=== PATIENT | female | born 1960 ===

== ENCOUNTER 2025-03-14 10:15 | Outpatient (RCR) | payer MEDICARE, SELFPAY ==
--- NOTE | 2024-12-27 13:35 | OTOPEVAL1 ---
Assessment and note entered by Yolanda Campos OT Evaluation Information Assessment Status Evaluation Diagnosis amputation leg Other ICD-10 Condition Codes ( Z89.512; Z47.81 OT) Onset 10/2024 Subjective Information Pt. 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 Pt. discharged to rehab [facility] and discharged home the 11/14. Pt. reports being able to complete ADLs and functional transfers from wheelchair with plans to see Weathe[employer] Operations Manager on Friday12/31/24 to be fitted for prosthetic. Pt. reports he has been able to modify IADLs including sweeping and mopping, and doesn't report any difficulty with management of day to day activities. Reported Pain Level Pain Score 0: Self Report Additional Pain Score Comments Pt. reports soreness, but no pain in L LE Assessment OT Clinical Summary Pt. is 64 year old M s/p L BKA 10/2024. Pt. completed acute inpatient rehab and returned home 11/14/24. Pt. reports he is mobilizing at home with wheelchair and completing stand pivot transfers for functional activities including toileting and bathing, and continues to participate in IADLs including cleaning his home. Pt. plans to be fit with L LE prosthetic a the end of this week. Pt. demonstrates adequate knowledge and capacity for functional transfers from wheelchair, ADLs requiring static and dynamic sitting balance, and strength necessary to complete necessary and desired functional activities. Pt. reports history of being physically active, which he reports he will continue, encouraged to continue to participate in upper body and core strengthening activities to limit risks of secondary injury or functional decline. No additional skilled OT services recommended at this time. Plan of Care OT Services Indicated No These treatments will address the objective and functional deficits as defined above. The patient will be advanced safely and appropriately in order for the patient to progress towards his/her prior level of function. Additional exercises will be introduced and as well as a comprehensive home exercise program upon discharge, if needed, ?to ensure carryover of functional gains achieved in the clinic. This treatment plan has been reviewed and agreement upon by the patient.
--- NOTE | 2024-12-27 14:20 | OPREHPOC ---
Outpatient Therapy Plan of Care This is a Multidisciplinary Plan of Care that may contain components documented by all disciplines (PT, OT, and ST.) PT Problem 1 PT Problem #1 Knowledge Deficit PT Goal 1 Goal / Goal Update Patient to demonstrate independence with HEP for improved self-reliance of symptom management. Target Visit 6 PT Problem 2 PT Problem #2 Pain PT Goal 1 Goal / Goal Update Patient to decrease subjective reports of phantom limb pain to <7/10. Target Visit 12 PT Problem 3 PT Problem #3 Impaired Strength PT Goal 1 Goal / Goal Update 1. Patient to demonstrate L hip strength >=5/5 for improved stability required for gait with prosthetic. 2. The patient will complete WBOS balance of >15 sec for decreased fall risk. Target Visit 12 PT Problem 4 PT Problem #4 Impaired Functional Mobility PT Goal 1 Goal / Goal Update 1. Patient to improve confidence and understanding of gait mechanics with L LE prosthetic and 2WW to improve community navigation. 2. Pt will perform gait with L LE prosthetic and 2WW with SBA for improved safety with mobility. Target Visit 12
--- NOTE | 2024-12-27 14:21 | PTOPEVAL1 ---
Assessment and note entered by Bekah David, PT Evaluation Information Assessment Status Evaluation Diagnosis Z89.512, Z47.81 ICD-10 Condition Codes (PT) Difficulty Walking R26.2,Weakness R53.1 Subjective Information Pt had a diabetic ulcer on the L foot requiring amputation in April 2024. Pt presents this date with [facility] in manual wheelchair. He reports he can use a walker but has not recently. He is mobile and I inside his home in the wheelchair including dressing, bathing, cooking, and laundry. He lives with his son who does the driving. He has an upcoming appt with [employer] on 12/31 to possibly get fitted for a prosthetic. He is currently in an ampushield. He needs to get his legs stronger so he can start walking as soon as he gets his prosthesis. Reported Pain Level Pain Score 0: Self Report Pain Score 0: Self Report Additional Pain Score Comments Pt. reports soreness, but no pain in L LE Assessment PT Clinical Summary Pt is a 64 year old male who presents to physical therapy s/p L REFUGIO in April 2024. Pt demonstrates hip weakness, phantom limb pain, decreased mobility, gait deficit, and decreased flexibility that require skilled intervention to prepare him for gait with new prosthetic. Pt will benefit from skilled physical therapy to address the above listed deficits and optimize CLOF once new prosthetic is obtained. HEP instructed and written handout provided, EX tolerated well with no adverse effects to note post-session. Pt was educated on importance of adherence to HEP. Pt was also educated on anatomy, prognosis, home modalities, and PT POC. Plan of Care Interventions Check Out for Orthotic/Prosthetic,Electrical Stimulation,Gait Training,Hot Pack/Cold Pack, Intermittent Compression Pump,Manual Therapy,Neuro Re-education,Patient/Caregiver Education, Prosthetic Training,Therapeutic Activities, Therapeutic Exercise,Self-Care/Home Management, Wheelchair Training PT Services Indicated Yes Treatment Frequency and 1-2x/wk for 12 sessions Duration These treatments will address the objective and functional deficits as defined above. The patient will be advanced safely and appropriately in order for the patient to progress towards his/her prior level of function. Additional exercises will be introduced and as well as a comprehensive home exercise program upon discharge, if needed, ?to ensure carryover of functional gains achieved in the clinic. This treatment plan has been reviewed and agreement upon by the patient.
--- NOTE | 2025-02-02 10:02 | OPREHPOC ---
Outpatient Therapy Plan of Care This is a Multidisciplinary Plan of Care that may contain components documented by all disciplines (PT, OT, and ST.) PT Problem 1 PT Problem #1 Knowledge Deficit PT Goal 1 Goal / Goal Update Patient to demonstrate independence with HEP for improved self-reliance of symptom management. --------- 02-02-25 progress goal met continue towards goal to progress education add: prosthetic education--donning/doffing, skin care Target Visit 22 PT Problem 2 PT Problem #2 Pain PT Goal 1 Goal / Goal Update Patient to decrease subjective reports of phantom limb pain to <7/10. --------- 02-02-25 progress goal not met, increase to 8/10 at times continue Target Visit 22 PT Problem 3 PT Problem #3 Impaired Strength PT Goal 1 Goal / Goal Update 1. Patient to demonstrate L hip strength >=5/5 for improved stability required for gait with prosthetic. 2. The patient will complete WBOS balance of >15 sec for decreased fall risk. --------- 02-02-25 progress goal 2 met continue towards goal 1 Target Visit 22 PT Problem 4 PT Problem #4 Impaired Functional Mobility PT Goal 1 Goal / Goal Update 1. Patient to improve confidence and understanding of gait mechanics with L LE prosthetic and 2WW to improve community navigation. 2. Pt will perform gait with L LE prosthetic and 2WW with SBA for improved safety with mobility. --------- 02-02-25 progress goals not met--pt does not have his prosthesis yet Target Visit 12 Progress Not Met PT Goal 2 Goal / Goal Update --------- 02-02-25 progress NEW GOALS: 1* pt ambulate on level surface, independently with wheeled walker and prosthesis 300' 2* pt up/down 4 steps with two hand railings, independently 3* pt ambulate with cane and minimal assist x1 50' 4* sit/stand with use of 1 UE and standing up without device for support 5* pt transfer sitting/floor with CGA x1 and use of UE on mat Target Visit 22
--- NOTE | 2025-02-02 10:02 | PTOPPROG ---
Assessment and note entered by Armida Fleming, PT Evaluation Information Assessment Status Progress Diagnosis Z89.512, Z47.81 ICD-10 Condition Codes (PT) Difficulty Walking R26.2,Weakness R53.1 Subjective Information going to [facility] tomorrow to get my leg; excited and ready to walk again; have been doing all the exercises at home; using the w/c for getting around the house; have a wheeled walker at home, use some; Assessment PT Clinical Summary Levar has received 12 PT sessions. He is to receive his prosthesis tomorrow. He has improved in all areas: using the wheelchair for mobility due to not having his prosthesis yet ; increase strength of L hip to 4+/5; independent with transfer w/c<>mat and propels w/c independently; gait with wheeled walker, for maximum distance of 150' in 2 minutes and 46 seconds; education for HEP and safety with mobility. The goals were partially achieved. Continue PT, progress gait and balance training with new below knee prosthesis, with education of prosthesis and skin care. Plan of Care Interventions Check Out for Orthotic/Prosthetic,Electrical Stimulation,Gait Training,Hot Pack/Cold Pack, Intermittent Compression Pump,Manual Therapy,Neuro Re-education,Patient/Caregiver Education, Prosthetic Training,Therapeutic Activities, Therapeutic Exercise,Self-Care/Home Management, Wheelchair Training PT Services Indicated Yes Treatment Frequency and 1-2x/wk for 10 visits Duration These treatments will address the objective and functional deficits as defined above. The patient will be advanced safely and appropriately in order for the patient to progress towards his/her prior level of function. Additional exercises will be introduced and as well as a comprehensive home exercise program upon discharge, if needed, ?to ensure carryover of functional gains achieved in the clinic. This treatment plan has been reviewed and agreement upon by the patient.
--- NOTE | 2025-02-11 11:10 | PCPTNOTE ---
pt called and canceled next 2 appointments, due to awaiting for his prosthesis. He will receive it on Feb 17.
--- NOTE | 2025-03-09 09:55 | PCPTNOTE ---
Pt canceled due to leg pain today.
--- NOTE | 2025-03-14 10:58 | OPREHPOC ---
Outpatient Therapy Plan of Care This is a Multidisciplinary Plan of Care that may contain components documented by all disciplines (PT, OT, and ST.) PT Problem 1 PT Problem #1 Knowledge Deficit PT Goal 1 Goal / Goal Update Patient to demonstrate independence with HEP for improved self-reliance of symptom management. --------- 02-02-25 progress goal met continue towards goal to progress education add: prosthetic education--donning/doffing, skin care 03-14-25 d/c goals met Target Visit 22 Progress Met PT Problem 2 PT Problem #2 Pain PT Goal 1 Goal / Goal Update Patient to decrease subjective reports of phantom limb pain to <7/10. --------- 02-02-25 progress goal not met, increase to 8/10 at times continue 03-14-25 d/c goals met Target Visit 22 Progress Met PT Problem 3 PT Problem #3 Impaired Strength PT Goal 1 Goal / Goal Update 1. Patient to demonstrate L hip strength >=5/5 for improved stability required for gait with prosthetic. 2. The patient will complete WBOS balance of >15 sec for decreased fall risk. --------- 02-02-25 progress goal 2 met continue towards goal 1 03-14-25 d/c goals met Target Visit 22 Progress Met PT Problem 4 PT Problem #4 Impaired Functional Mobility PT Goal 1 Goal / Goal Update 1. Patient to improve confidence and understanding of gait mechanics with L LE prosthetic and 2WW to improve community navigation. 2. Pt will perform gait with L LE prosthetic and 2WW with SBA for improved safety with mobility. --------- 02-02-25 progress goals not met--pt does not have his prosthesis yet Target Visit 12 Progress Not Met PT Goal 2 Goal / Goal Update --------- 02-02-25 progress NEW GOALS: 1* pt ambulate on level surface, independently with wheeled walker and prosthesis 300' 2* pt up/down 4 steps with two hand railings, independently 03-14-25 d/c goals met 3* pt ambulate with cane and minimal assist x1 50' 4* sit/stand with use of 1 UE and standing up without device for support 5* pt transfer sitting/floor with CGA x1 and use of UE on mat Target Visit 22 Progress Met
--- NOTE | 2025-03-14 10:58 | PTOPDC ---
Assessment and note entered by Armida Fleming, PT Assessment Status Discharge Diagnosis Z89.512, Z47.81 ICD-10 Condition Codes (PT) Difficulty Walking R26.2,Weakness R53.1 Subjective Information still having balance problems with standing and putting on shirt, slipping it over his head; no problems with skin; is able to wear the leg about 3 hours/day; when sitting in the recliner, watching TV, tend to take off the leg; have not used the cane in about 2 weeks; have not been using the wheelchair at all lately; Reported Pain Level Pain Score 3: Self Report Additional Pain Score Comments phantom pain, sharp in leg, last few seconds, then goes away; 0-06/28 Assessment PT Clinical Summary Levar has received a total of 18 treatment sessions . With today's assessment: 6 minute walking test distance of 1,000' without assistive device and good gait pattern; on stairs, is independent with use of 1 hand railing; is able to transfer sitting/floor independent with use of hands on mat ; continues to have phantom pain in L LE, sharp pain lasting few seconds only; education completed for HEP, gait balance and safety. He is independent with L lower leg prosthesis and skin care is good. The goals were achieved. Discharge PT. He is to continue with HEP, walking as tolerated. Plan of Care PT Services Indicated No
== END 2025-03-14 12:01 | disposition home or self-care (01) ==
LOC: ANHPT 10:15
DX: Z47.81 Encounter for orthopedic aftercare following surgical amputation (principal); Z89.512 Acquired absence of left leg below knee
CPT/HCPCS: 97110; 97112; 97116; 97140; 97161; 97165; 97530